=== PATIENT | female | born 1955 | race Caucasian/White ===

== ENCOUNTER 2016-11-24 09:29 | Day surgery (SDC) | payer BC ==
[~2016-11-24] VITALS: Ht 170.2 cm; Wt 68.0 kg
[~2016-11-24 09:29] MED LIST: DEPAKOTE500 M1 PO; LAMICTAL100 M2 PO; NEXIUM40 M1 PO; NORVASC5 M2 PO; PRINIVIL5 M1 PO; SYNTHROID88 MC1 PO
[2016-11-24 11:52] LABS: CSF GLUCOSE 52 mg/dl (40-75)
[2016-11-24 12:45] LABS: CSF APPEARANCE CLEAR (CLEAR); CSF COLOR COLORLESS (COLORLESS); CSF RBC CT 0 cmm (0); CSF TUBE NUMBER CSF TUBE 3
[2016-11-24 12:46] LABS: CSF WBC CT <1 cmm (0-10)
== END 2016-11-24 13:38 ==
LOC: SHSB 09:29 → RADSP 09:29 → SHSB 09:30 → RADSP 11:00
PROVIDERS: Psychiatry & Neurology Neurology
PROC: 009U3ZX Drainage of Spinal Canal, Percutaneous Approach, Diagnostic (ICD-10-PCS; principal; 2016-11-24)
PROC: B01BZZZ Fluoroscopy of Spinal Cord (ICD-10-PCS; 2016-11-24)
DX: R26.0 Ataxic gait (principal); R94.02 Abnormal brain scan; Z98.890 Other specified postprocedural states
CPT/HCPCS: J7030

== ENCOUNTER → 2016-11-27 | Day surgery (SDC) | payer BC | LOC: EDSTATUS 13:30 → U 13:30 → SRG 13:59 | DX: G97.1 Other reaction to spinal and lumbar puncture (principal); Z53.8 Procedure and treatment not carried out for other reasons; G43.909 Migraine, unspecified, not intractable, without status migrainosus; F31.9 Bipolar disorder, unspecified; I10 Essential (primary) hypertension; E03.9 Hypothyroidism, unspecified; Z79.899 Other long term (current) drug therapy ==